=== PATIENT | female | born 1965 | race Caucasian/White ===

== ENCOUNTER → 2019-12-24 14:08 | Outpatient (CLI) | payer MEDICARE ==
--- NOTE | ~2019-12-24 | ST ---
PATIENT:TITO VARGAS MEDICAL RECORD: [id number] SEX: F LOCATION:[facility] ORDER #: ADMISSION DATE: 12/24/19 AGE OF PATIENT: 54 REFERRING PHYSICIAN: INTERPRETING PHYSICIAN: ROHAN WRIGHT MD DATE OF SERVICE: 12/24/2019 TREADMILL STRESS TEST Baseline ECG is normal. Exercised for 5 minutes of Issa protocol, maximum heart rate 156 beats per minute, greater than 85% maximum predicted. No ECG changes for ischemia. Chest tightness and pressure and shortness of breath with exertion. Normal blood pressure response to exercise. No arrhythmias noted. TRANSINT:[id number] Voice Confirmation ID: [id number] DOCUMENT ID: [id number] ROHAN WRIGHT MD CC: [id number] DICTATION DATE: 12/25/19828 COMPUTER FIELD TECHNICIAN: 12/25/19 2307 [facility] CLI 12/24/19 [id number] [place] [address]
--- NOTE | 2019-12-25 10:33 | EC ---
PATIENT:TITO VARGAS DATE OF SERVICE: 12/24/19 SEX: F MEDICAL RECORD: [id number] DATE OF : 67 [facility] AGE [facility]: 54 ADMISSION DATE: 12/24/19 REFERRING PHYSICIAN: INTERPRETING PHYSICIAN: ROHAN WRIGHT MD ECHOCARDIOGRAM REPORT ECHO CHARGES 4 ECHO COMPLETE Date: 12/24/19 CLINICAL DIAGNOSIS: HEART MURMUR ECHOCARDIOGRAPHIC MEASUREMENTS (adult normal given) AC root (d.<3.7cm) 2.5 cm LV Septum d (<1.2 cm> 1.2 cm Valve Excursion 1.6 cm LV Septum (systole) 1.5 cm Left Atria (s.<4.0cm> 3.4 cm LVPW d(<1.2cm) 1.4 cm RV (d.<2.3cm) 2.7 cm LVPW (sytole) 1.7 cm LV diastole(<5.6CM) 3.7 cm MV E-F(>70mm/sec) cm LV systole 2.2 cm LVOT Diameter 1.9 cm MV exc.(>10mm) 0.90 cm Est.ejection fraction (50-75%) % DOPPLER: LVIT cm/sec A 115.0cm/sec E 79.0 cm/sec LA cm/sec RVSP 19 mmHg LVOT 124 cm/sec AOP1/2T m/s Asc. Ao 143 cm/sec RVOT 89 cm/sec RA cm/sec PA 123 cm/sec AV Gradient Peak 8.16 mmHg AV Mean 4.22 mmHg AV Area 2.6 cm MV Gradient Peak 8.03 mmHg MV Mean 3.24 mmHg MV Area cm COMMENTS: Zone Supervisor Firearms: 2 ERICK SMITH Field Seismologist: 3 Dr. Matson TAPE# PACS Pericardial Effusion N DATE OF SERVICE: Adequate 2D echo, color flow imaging, spectral Doppler, and M-Mode. LVH is present. LV internal dimension is normal. Wall motion is normal. EF is greater than or equal to 55%. Aortic valve is tricuspid. No evidence of stenosis by Doppler interrogation. Left atrium is normal. Mitral valve shows no prolapse. Trace MR. Right-sided chambers are grossly normal. Trace TR. TRANSINT:[id number] Voice Confirmation ID: [id number] DOCUMENT ID: [id number] ECHOCARDIOGRAM REPORT [id number] SAM,TITO M ROHAN WRIGHT MD at 1033 CC: [id number] DICTATION DATE: 12/25/19817 ECG TECHNICIAN: 12/25/19 0959 [facility]P CLI 12/24/19 [facility] [address] [place] [address]
== END | disposition home or self-care (01) ==
LOC: D.HCCECHO 14:08
PROVIDERS: ATTEND Internal Medicine Interventional Cardiology
DX: I20.9 Angina pectoris, unspecified (principal); R01.1 Cardiac murmur, unspecified

== ENCOUNTER 2020-01-07 07:02 | Outpatient (CLI) | payer MEDICARE ==
[~2020-01-07] VITALS: Ht 149.9 cm; Wt 66.9 kg
--- NOTE | ~2020-01-07 | HEMODYNAMI ---
PATIENT:TITO VARGAS MEDICAL RECORD: [id number] : 67 LOCATION:D.CAT ADMISSION DATE: 01/07/20 Generatedon:01/07/20209:57 Patient name: TITO VARGAS Patient #: [id number] : 1965 Date of study: 01/07/2020 Page: Of Hemodynamic Procedure Report Patient Data Patient Demographics Procedure consent was obtained First Name: TITO Gender: Female Last Name: SAM : 1965 Middle Initial: M Age: 54 year(s) Patient #: [id number] Race: SSN: [id number] Additional ID: [id number] Contact details Address: [address] State: [place] City: [place] Zip code: [address] Past Medical History Allergies Allergen Reaction Date Comments Reported Other allergy 01/07/2020 PCN, MORPHINE, CODIENE, SULFA Admission Admission Data Admission Date: 01/07/2020 Admission Time: 7:02 Arrival Date: 01/07/2020 Arrival Time: 0:00 Admit Source: Other Insurance Payor: Private health insurance [facility] #: [id number] Height (in.): 58.66 BSA: 1.6 (m2) Height (cm.): 149 BMI: 29.73 (kg/m2) Weight (lbs.): 145.51 Weight (kg.): 66 Lab Results Lab Result Date: 01/07/2020 Lab Result Time: 0:00 Biochemistry Name Units Result Min Max BUN mg/dl 26 --(----)-* 7 18 Creatinine mg/dl 1.1 --(--*-)-- 0.6 1.3 eGFR ml/min 152 --(----)-* 90 120 NONAFRICAN CBC Name Units Result Min Max Hemoglobin g/dl 13.5 --(*---)-- 13.5 17.5 Procedure Procedure Types Cath Procedure Diagnostic Procedure [facility] w/Coronaries Sedation Charges Moderate Sedation up to 15 minutes Procedure Description Procedure Date Procedure Date: 01/07/2020 Procedure Start Time: 9:45 Procedure End Time: 9:54 Procedure Staff Name Function Jens Rosales MD Performing Physician Rae Chung RT Monitor Amita Arango RT Scrub Adriana Clark RN Nurse Arti Ybarra RT Manager Poker Procedure Data Cath Procedure Fluoroscopy Diagnostic fluoroscopy Total fluoroscopy Time: 0.9 time: 0.9 min min Diagnostic fluoroscopy Total fluoroscopy dose: 228 dose: 228 mGy mGy Contrast Material Contrast Material Type Amount (ml) Isovue 300 41 Entry Location Entry Primary Successful Side Size Upsize Upsize Entry Closure Abdi ccessful Closure Location (Fr) 1 (Fr) 2 (Fr) Remarks Device Remarks Radial Right 6 Fr Mechanical artery Short Compression Estimated blood loss: 10 ml Diagnostic catheters Device Type Used For End Catheter Placement DIAGNOSTIC Datto 110cm 5 Procedure Fr catheter ([id number]) Procedure Complications No complications Procedure Medications Medication Administration Route Dosage 0.9% NaCl I.V. 100 ml/hr Oxygen etCO2 Nasal cannula 2 l/min Lidocaine 2% added to field 20 Heparin Flush Bag added to field 2 bags (1000units/500ml NS) Radial Cocktail added to field 1 syringe (Verapamil 2mg/Nitro 400mcg/Heparin 1500units) Versed I.V. 1 mg Fentanyl I.V. 50 mcg Hemodynamics Rest BSA: 1.6 (m2) O2 Consumption: Estimated: 154.86 (ml/min) O2 Consumption indexed: Estimated:96.79 (ml/min/m) Heart Rate: 70 (bpm) Pressure Samples Time Site Value (mmHg) Purpose Heart Use Rate(bpm) 9:49 LV 110/25,11 Snapshot 96 Gradients Valve Time Site Site Mean SEP/DFP Peak To Heart Use 1 2 (mmHg) (sec/min) Peak Rate (mmHg) (bpm) Aortic 9:50 LV AO 74 Snapshots Pre Cath Intra NCS Post Cath Vital Signs Time Heart Resp SPO2 etCO2 NIBP Rhythm Pain Sedation Rate (ipm) (%) (mmHg) (mmHg) Status Level (bpm) 9:30:50 65 14 100 19.4 138/71(95) NSR 0 (11) 10(A) , No pain 9:35:06 66 18 96 31.4 122/71(89) NSR 0 (11) 10(A) , No pain 9:39:18 61 22 98 39.7 128/68(91) NSR 0 (11) 10(A) , No pain 9:43:28 60 21 99 38.2 119/66(82) NSR 0 (11) 10(A) , No pain 9:47:38 62 15 100 32.2 113/68(98) NSR 0 (11) 10(A) , No pain 9:51:50 79 20 98 35.2 121/57(78) NSR 0 (11) 10(A) , No pain Medications Time Medication Route Dose Verified Delivered Reason Notes Ef fectiveness by by 9:29:51 0.9% NaCl I.V. 100 Jens Adriana used for ml/hr BobbyJuanjose Clark procedure MD MARTELL 9:30:02 Oxygen etCO2 2 l/min Jens Adriana used for Nasal Bobby Eduardo procedure cannula MD MARTELL 9:30:06 Lidocaine 2% added 20ml Jens Colindres for local to vial [facility] anesthetic field MD GODDARD 9:30:11 Heparin Flush added 2 bags [facility]ens [facility]ens [facility] ([facility]/500ml field MD GODDARD NS) 9:30:16 Radial Cocktail added 1 Jens Colindres used for ([facility] 2mg/Nitro field MD GODDARD 400mcg/Heparin 1500units) 9:43:26 Versed I.V. 1 mg Jens Adriana for St Juanjose Clark sedation MD MARTELL 9:43:39 Fentanyl I.V. 50 mcg Jens Wright for Bobby Eduardo sedation MD MARTELLhealth coordinator Log Time Note 9:13:11 Informed consent obtained and on chart 9:14:16 Arti Ybarra RT(R) sent for patient. Start room use. 9:14:21 Procedure Status Elective Heart Cath (OP). 9:14:24 Time tracking: Regular hours (M-F 7:00 - 5:00) 9:14:31 Plan of Care:Hemodynamics will remain stable., Cardiac rhythm will remain stable., Comfort level will be maintained., Respiratory function will remain adequate., Patient/ family verbilizes understanding of procedure., Procedure tolerated without complication., Recovers from procedure without complications.. 9:19:35 Arrival Date: 01/07/2020 12:00:00 AM 9:19:53 Admit Source: Other 9:19:55 Insurance Payor : Private health insurance 9:20:03 Patient Height : 58.66 inches 9:20:11 Patient Weight : 145.51 lbs 9:20:48 Lab Result : BUN 26 mg/dl 9:20:48 Lab Result : eGFR NONAFRICAN 152 ml/min 9:20:48 Lab Result : Hemoglobin 13.5 g/dl 9:20:48 Lab Result : Creatinine 1.1 mg/dl 9:21:05 Patient received from Pre/Post Procedure Room to CCL 1 Alert and oriented. Tansferred to table in Supine position. 9:21:07 Warm blankets applied, and roberta hugger turned on for patient comfort. 9:21:07 Correct patient and procedure confirmed by team. 9:21:08 ECG and BP/O2 sat monitors applied to patient. 9:21:21 H&P Date Dictated: 12/10/2019 Within 30 days and on chart., H&P Addendum completed by physician on day of procedure. (MUST COMPLETE FOR ALL OUTPATIENTS). 9:21:23 Pre-procedure instructions explained to patient. 9:21:25 Family in patients room. 9:21:28 Patient NPO since Midnight. 9:21:55 Patient allergic to Other allergyPCN, MORPHINE, CODIENE, SULFA 9:21:58 Is the patient allergic to Iodine/contrast media? No. 9:22:01 Was the patient premedicated? Yes 9:22:24 Is patient on blood thinner?No 9:22:28 Is patient on blood thinner?No 9:22:39 Snore? Yes 9:22:43 Sleep apnea? No 9:23:04 Airway obstruction? Yes COPD 9:23:08 Dentures? No ? 9:23:11 Patient pain scale 0/10 ?. 9:23:21 IV patent on arrival in left forearm with 0.9% NaCl at KVO. 9:23:45 Lab results completed and on chart. 9:24:15 Stress Test: yes; abnormal SOB, CP 9:24:23 Right Radial & Right Groin area was prepped with chlora-prep and draped in sterile fashion 9:24:24 Alarms reviewed by R. N. 9:24:25 Sharps counted by scrub and verified by R.N. 9:28:48 HCG/Urine : completed and on chart, negative 9:29:44 Vital chart was started 9:29:51 0.9% NaCl 100 ml/hr I.V. was administered by Adriana Clark RN; used for procedure; Verbal order read back and verified. 9:30:02 Oxygen 2 l/min etCO2 Nasal cannula was administered by Adriana Clark RN; used for procedure; Verbal order read back and verified. 9:30:06 Lidocaine 2% 20ml vial added to field was administered by Jens Rosales MD; for local anesthetic; Verbal order read back and verified. 9:30:11 Heparin Flush Bag (1000units/500ml NS) 2 bags added to field was administered by Jens Roslaes MD; used for procedure; Verbal order read back and verified. 9:30:16 Radial Cocktail (Verapamil 2mg/Nitro 400mcg/Heparin 1500units) 1 syringe added to field was administered by Jens Rosales MD; used for procedure; Verbal order read back and verified. 9:34:06 Physician paged 9:34:07 Physician arrived 9:34:35 Baseline sample Acquired. 9:34:43 Rhythm: sinus rhythm 9:34:46 Full Disclosure recording started 9:42:21 --------ALL STOP TIME OUT------ 9:42:22 Final Timeout: patient, procedure, and site verified with staff and physician. All members of the team are in agreement. 9:42:23 Right Radial & Right Groin site verified by team. 9:42:31 Fire Safety Assessment: A--An alcohol-based skin anteseptic being used preoperatively., C--Open oxygen or nitrous oxide is being used., D--An ESU, laser, or fiber-optic light is being used. 9:42:33 Physical assessment completed. ASA score P 2 - A patient with mild systemic disease as per Jens Rosales MD. 9:42:36 3a) 45-59 Moderately reduced kidney function. 9:42:39 Maximum allowable contrast dose (3.7 X eGFR X 0.75)152 ml. 9:42:42 Sedation plan: IV Moderate Sedation Medication:Versed, Fentanyl 9:43:26 Versed 1 mg I.V. was administered by Adriana Eduardo RN; for sedation; Verbal order read back and verified. 9:43:39 Fentanyl 50 mcg I.V. was administered by Adriana Clark RN; for sedation; Verbal order read back and verified. 9:44:52 Procedure started. 9:44:55 Zero performed for pressure channel P1 9:45:31 Use device set Radial Dx or PCI 9:45:41 Local anesthetic to right radial artery with Lidocaine 2% by Rae HAMILTON(R).INITIAL ACCESS ONLY 9:45:44 ACIST Syringe (90313) opened to sterile field. 9:45:45 Medline Cath Pack ([id number]) opened to sterile field. 9:45:45 Bag Decanter (2002) opened to sterile field. 9:45:46 ACIST Hand Control (46452) opened to sterile field. 9:45:46 ACIST Manifold (22354) opened to sterile field. 9:45:47 Tegaderm 4 x 4 (1626W) opened to sterile field. 9:45:53 MBrace Wrist Support (694285234) opened to sterile field. 9:45:56 EMERALD Guide Wire (367-017) opened to sterile field. 9:45:58 SHEATH 6FR RAIN (3324636) opened to sterile field. 9:46:14 A 6 Fr Short sheath was inserted into the Right Radial artery 9:48:15 A DIAGNOSTIC Datto 110cm 5 Fr catheter (334320) was advanced over the wire and used for Procedure. 9:49:07 LV angiography performed. 9:49:37 LV gram done using FRANKLIN 9:49:47 EF : 55 % 9:50:06 LCA angiography performed. 9:51:19 RCA angiography performed. 9:51:32 Catheter removed. 9:52:12 ZEPHYR REGULAR TR BAND (876694) opened to sterile field. 9:52:44 Sheath removed intact; hemostasis achieved with Mechanical Compression to the Right Radial artery. 9:52:47 Procedure ended.(Physican Out) 9:53:04 Pelsor band inflated with 10cc of air. 9:53:05 Insertion/operative site no bleeding no hematoma. 9:53:14 Post-procedure physical assessment completed. ASA score P 2 - A patient with mild systemic disease as per Jens Rosales MD. 9:53:17 Post procedure rhythm: unchanged. 9:53:20 Estimated blood loss: 10 ml 9:53:22 Post procedure instruction explained to patient.Patient verbalizes understanding. 9:53:47 Procedure type changed to Cath procedure, Diagnostic procedure, LHC, [facility] w/Coronaries, Sedation Charges, Moderate Sedation up to 15 minutes 9:53:49 Procedure and supply charges have been captured, reviewed, submitted and are correct. 9:54:07 Procedure Complication : No complications 9:54:11 Vital chart was stopped 9:54:12 [facility] Findings: mild to moderate CAD (<70%) 9:54:20 Report given to Pre/Post Procedure Room. 9:54:23 Patient transfered to Pre/Post Procedure Room with Stretcher. 9:54:26 Procedure ended. 9:54:26 Full Disclosure recording stopped 9:54:29 End room use (Document Last) 9:55:00 Fluoroscopy time 00.90 minutes. 9:55:14 Fluoroscopy dose: 228 mGy 9:55:14 Flurop Dose total: 228 9:55:19 Dose Area Product 20479 mGy/cm. 9:55:26 Contrast amount:Isovue 300 41ml. 9:55:29 Maximum allowable dose exceeded? No. 9:55:30 Sharps counted by scrub and verified by R.N. 9:56:45 Sharps counted by scrub and verified by R.N. 9:57:27 Sharps counted by scrub and verified by R.N. Device Usage Item Name Manufacture Quantity Catalog Hospital Part Current Minima l Lot# / Number Charge Number Stock Stock Serial# Code ACIST Acist 1 33004 370502 183842 086259 20 Syringe Medical (96667) Systems Inc Medline Medline 1 [id number] 410715 15027 747854 5 Cath Pack ([id number]) Bag Microtek 1 2001S 545603 88729 859299 5 Decanter Medical Inc. () ACIST Hand Acist 1 05037 879525 907885 597557 5 Control Medical (60224) Systems Inc ACIST Acist 1 49555 119583 236184 558288 5 Manifold Medical (42066) Systems Inc Tegaderm 4 3M 1 1626W 860039 908980 575094 5 x 4 (1626W) MBrace Advanced 1 140-0250-00 388493 52974 990037 5 Wrist Vascular Support Dynamics ([id number]) EMERALD Cardinal 1 712-421 301225 501539 904506 5 Guide Wire Health (321-556) SHEATH 6FR Cardinal 1 [id number] 003245 3507012 776127 5 [facility] Health (8191679) DIAGNOSTIC Terumo 1 40-3711 289646 011095 355184 5 Datto 110cm 5 Fr catheter (235791) ZEPHYR Cardinal 1 802415 750351 9809955 409591 5 REGULAR TR Health BAND (513942) Signature Audit [place] Stage Time Signature Unsigned Intra-Procedure 01/07/2020 Rae Chung 9:56:45 AM RT(R) Intra-Procedure 01/07/2020 Adriana Clark 9:57:27 AM RN Intra-Procedure 01/07/2020 Jens Villasenor 9:57:52 AM Juanjose GODDARD [address] [place] [address]
[2020-01-07] MEDS ORDERED: HCTZ25 MG PO (07:28)
[2020-01-07] MEDS ORDERED: TOPROL XL25 MG PO (07:28)
[2020-01-07 07:40] VITALS: BP 138/70; Ht 149.9 cm; Wt 66.9 kg
[2020-01-07 08:08] LABS: BASOPHILS 0.3 % (0-2); HEMATOCRIT 40.7 % (36.0-48.0); HEMOGLOBIN 13.5 g/dL (12-16); IMMATURE GRANULOCYTES 0.1 % (0-5); MCH 29.5 pg (26.0-34.0); MCHC 33.2 g/dL (31.0-37.0); MCV 89.1 fL (80.0-100.0); MEAN PLATELET VOLUME 8.5 fL (7.4-10.4); MONOCYTES 7.3 % (2-11); NEUTROPHILS 52.3 % (40-80); PLATELET COUNT 280 10x3/uL (130-400); RBC 4.57 10x6/uL (4.00-5.40); RDW 13.3 % (11.5-14.5); WBC 7.1 10x3/uL (4.8-10.8)
[2020-01-07 08:15] LABS: ANION GAP 11.2 mmol/L (8-16); CALCIUM 8.9 mg/dL (8.5-10.1); CARBON DIOXIDE 28.2 mmol/L (21.0-32.0); CHOL - HDL RATIO 3.8 ratio (2.3-4.1); CREATININE - SERUM 1.1 mg/dL (0.6-1.3); LDL-HDL RATIO 2.5 ratio (1.5-3.5); POTASSIUM - SERUM 3.4 mmol/L (3.5-5.1)
[2020-01-07 09:12] LABS: HCG SERUM NEGATIVE (NEGATIVE)
--- NOTE | 2020-01-07 10:00 | NUR ---
PT RECEIVED VIA STRETCHER FROM AIR DEFENSE ARTILLERY OFFICER FOR RECOVERY, PT SLEEPING, BUT VERBALLY AROUSABLE. ZYPHER BAND AND IMMOBILIZER TO R WRIST/ARM, DRESSING CDI NO S/S HEMATOMA OR BLEEDING. CAP REFILL BRISK, ARM PINK AND WARM. IV PATENT INFUSING VIA ORDERS. PT PLACED ON CARDIAC MONITORS AND O2 VIA NC AT 1L. HR NSR RATE 64, BP 127/69, RR 16, SAT 100. CALL LIGHT IN REACH. DR WRIGHT AT BS TALKING W PT'S MOTHER REGARDING PROCEDURE RESULTS.
--- NOTE | 2020-01-07 10:30 | NUR ---
PT STILL SLEEPING COMFORTABLY, VSS. ZBAND AND IMMOBILIZER IN PLACE, DRESSING CDI NO S/S HEMATOMA NOTED. ARM PINK AND WARM, CAP REFILL BRISK. CALL LIGHT IN REACH, MOTHER AT BS
--- NOTE | 2020-01-07 11:05 | NUR ---
4CC AIR REMOVED FROM Z BAND, NO BLEEDING OR S/S HEMATOMA NOTED. PT TOLERATED LUNCH W/O NAUSEA. PT DENIES PAIN OR DISCOMFORT. VSS. CALL LIGHT IN REACH
--- NOTE | 2020-01-07 11:22 | NUR ---
4 ADD'L CC OF AIR REMOVED FROM Z BAND, NO BLEEDING NOTED.
--- NOTE | 2020-01-07 12:00 | NUR ---
DISCHARGE INSTRUCTIONS REVIEWED W PT AND MOM, BOTH VERBALIZED UNDERSTANDING. IV REMOVED W CATH INTACT, MONITORS REMOVED. ZBAND AND IMMOBILIZER IN PLACE, NO S/S BLEEDING OR HEMATOMA. PT UP TO DRESS FOR DISCHARGE.
--- NOTE | 2020-01-07 12:24 | NUR ---
REMAINING AIR AND Z BAND REMOVED, NO BLEEDING OR S/S HEMATOMA NOTED. 2X2 AND SM TEGADERM DRESSING APPLIED. IMMOBILIZER RE POSITINED. PT DISCHARGED VIA WC TO PRIVATE VEHICLE. PT HAD ALL BELONGINGS
--- NOTE | 2020-01-08 08:09 | OP ---
PATIENT NAME: TITO VARGAS MEDICAL RECORD: [id number] :67 LOCATION:D.CAT ADMISSION DATE: SURGEON: ROHAN WRIGHT MD DATE OF OPERATION: 01/07/2020 PROCEDURE: Left heart catheterization, selective coronary angiography, right radial approach. CATHETERS: [place] catheter, radial sheath. The procedure was tolerated. The patient returned to the roberts, sheath removed. TR band was placed. FINDINGS: Left ventriculography in 30-degree FRANKLIN view: Normal wall motion and normal systolic function. CORONARY ANATOMY: LEFT MAIN: Left main is free of disease. LAD: Free of disease in the diagonal system. CIRCUMFLEX: Free of disease in the marginal system. RIGHT CORONARY ARTERY: Dominant artery, gives rise to PDA, free of disease. IMPRESSION: Normal LV systolic function, normal coronary anatomy. TRANSINT:[id number] Voice Confirmation ID: [id number] DOCUMENT ID: [id number] ROHAN WRIGHT MD at 0809 CC: [id number] DICTATION DATE: 01/07/20 1003 TICK ERADICATOR: 01/07/20 1254 DEP CLI 01/07/20 [facility] [address] [place] [address]
== END 2020-01-07 12:25 | disposition home or self-care (01) ==
LOC: D.CATH 07:02
PROVIDERS: ATTEND Internal Medicine Interventional Cardiology
DX: R07.9 Chest pain, unspecified (principal); R06.09 Other forms of dyspnea; I10 Essential (primary) hypertension; R01.1 Cardiac murmur, unspecified